=== PATIENT | male | born 1950 | race Caucasian/White ===

== ENCOUNTER 2018-03-28 07:38 | Observation (INO) | payer MEDICARE, BC ==
[2018-03-28] MEDS ORDERED: Aspirin 81 mg CHEW TAB* 81 MG TAB.CHEW PO ONE (07:55)
[2018-03-28] MEDS ORDERED: Nitroglycerin TAB 0.4 MG* 0.4 MG TAB ONE (07:56)
[2018-03-28] MEDS ORDERED: Aspirin 81 mg CHEW TAB* 81 MG TAB.CHEW ONE (07:57)
[2018-03-28] MEDS: Nitroglycerin TAB 0.4 MG* 0.4 MG TAB SL ONE ×2 (07:59→08:13)
--- NOTE | 2018-03-28 08:08 | ED ---
HPI Chest Pain - HPI Summary HPI Summary: This is cady Posey documenting for attending Sher James MD. This patient is a 68 year old M presenting to ED with a chief complaint of CP since 1300 yesterday and early this morning. He took asa 81mg early this morning after waking up and was able to doze back to sleep because of it. The CC is described as tightness. The patient rates the pain 7-8/10 in severity. Symptoms aggravated by deep breath. Symptoms alleviated by nothing. Patient reports neck pain (not unusual for last 1.5 years) and L shoulder pain. Patient denies leg pain/swelling. Patient denies recent travel. Called Dr. Weiner this morning who told him to be seen in the ED. No PMHx of heart attack or blood clot. - History of Current Complaint Chief Complaint: EDChestPainROMI Time Seen by Provider: 03/28/18 07:46 Hx Obtained From: Patient Onset/Duration: Started Hours Ago, Still Present Timing: Constant, Lasting Hours Initial Severity: Moderate Current Severity: Moderate Pain Intensity: 7 Pain Scale Used: 0-10 Numeric - 7-8/10 Character: Tightness Aggravating Factor(s): Deep Breaths Alleviating Factor(s): Nothing Associated Signs and Symptoms: Positive: Other: - Patient reports neck pain ( not unusual for last 1.5 years) and L shoulder pain. Patient denies leg pain/ swelling. - Allergy/Home Medications Allergies/Adverse Reactions: Allergies Allergy/AdvReac Type Severity Reaction Status Date / Time SEASONAL ALLERGIES Allergy Intermediate Sneezing Uncoded 03/28/18 07:45 Home Medications: Home Medications Lisinopril/HCTZ 20/25(NF) [Zestoretic 20/25(NF)] 0.5 tab PO DAILY 03/28/18 [ History Confirmed 03/28/18] PMH/Surg Hx/FS Hx/Imm Hx Endocrine/Hematology History: Denies: Hx Diabetes, Hx Systemic Lupus Erythematosus Cardiovascular History: Reports: Hx Hypertension - ON MEDICATION Denies: Hx Congestive Heart Failure, Hx Pacemaker/ICD History: Reports: Other Problems/Disorders - 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 TONSILECTOMY. WISDOM TEETH. Infectious Disease History: No Infectious Disease History: Denies: Traveled Outside the [place] in Last 30 Days - Family History Known Family History: Positive: Hypertension, Diabetes, Other Family History: bypass, CA, rheumatoid arthritis - Social History Alcohol Use: Weekly Alcohol Amount: 14 beers per week Substance Use Type: Reports: Marijuana, Prescribed Substance Use Comment - Amount & Last Used: Medical Marijuana Smoking Status (MU): Never Smoked Tobacco Have You Smoked in the Last Year: No Review of Systems Positive: Other - neck pain (not unusual for last 1.5 years) Positive: Chest Pain Positive: Other - L shoulder pain; denies leg pain/swelling All Other Systems Reviewed And Are Negative: Yes Physical Exam - Summary Physical Exam Summary: GENERAL: Patient is a well-developed and nourished MALE who is lying comfortable in the stretcher. Patient is not in any acute respiratory distress. HEAD AND FACE: Normocephalic EYES: PERRLA, EOMI x 2. EARS: Hearing grossly intact. MOUTH: Oropharynx within normal limits. NECK: Supple, trachea is midline, no adenopathy, no JVD, no carotid bruit. CHEST: Symmetric, no tenderness at palpation LUNGS: No wheezing. Crackles in R lung base. CVS: Regular rate and rhythm, S1 and S2 present, no murmurs or gallops appreciated. ABDOMEN: Soft, non-tender. Bowel sounds are normal. No abdominal abnormal pulsations. EXTREMITIES: Full ROM in all major joints, no edema, no cyanosis or clubbing. NEURO: Alert and oriented x 3. No acute neurological deficits. Speech is normal and follows commands. SKIN: Dry and warm Triage Information Reviewed: Yes Vital Signs On Initial Exam: Initial Vitals Temp Pulse Resp BP Pulse Ox 98.8 F 114 20 173/91 98 03/28/18 07:42 03/28/18 07:42 03/28/18 07:42 03/28/18 07:42 03/28/18 07:42 Vital Signs Reviewed: Yes Diagnostics - Vital Signs Vital Signs Temp Pulse Resp BP Pulse Ox 03/28/18 07:44 114 173/91 99 03/28/18 07:42 98.8 F 114 20 173/91 98 - Laboratory Result Diagrams: 03/28/18 08:04 03/28/18 08:04 Lab Statement: Any lab studies that have been ordered have been reviewed, and results considered in the medical decision making process. - Radiology CXR Radiology Interpretation Completed By: ED Physician - CXR has no acute findings. Pending official radiologist interpretation. See [facility]. - EKG 0751 Cardiac Rate: Tachycardia - 105 BPM EKG Rhythm: Sinus Tachycardia EKG Interpretation: L axis deviation Re-Evaluation - Re-Evaluation First Eval Re-Evaluation Time: 09:08 Change: Improved Comment: His CP went away with Nitro. Discussed plan for admission with the patient. The patient is agreeable with this plan. Chest Pain Course/Dx - Course Assessment/Plan: This patient is a 68 year old M presenting to ED with a chief complaint of CP since 1300 yesterday and early this morning. Workup is unremarkable including trop and D-dimer. The CP went away after given 2 nitro. Given high risk, the patient will be admitted for full ACS evaluation. Case discussed with hospitalist. I discussed results with patient. He agrees with this plan. - Chest Pain Differential Diagnosis/HQI/PQRI: Other: - chest pain - Diagnoses Provider Diagnoses: Chest pain - Provider Notifications Discussed Care Of Patient With: Anibal Naik Time Discussed With Above Provider: 09:06 Instructed by Provider To: Other - Consulted Dr. Naik at 0906 who accepts the patient for admission. Discharge - Sign-Out/Discharge Documenting (check all that apply): Patient Departure - Discharge Plan Condition: Stable Disposition: ADMITTED TO [facility] - Billing Disposition and Condition Condition: STABLE Disposition: Admitted to [facility]
[2018-03-28 08:11] LABS: ABS Basophils 0.1 10^3/ul (0-0.2); ABS Eosinophils 0.2 10^3/ul (0-0.6); ABS Lymphocytes 1.4 10^3/ul (1.0-4.8); ABS Monocytes 1.2 10^3/ul (0-0.8); ABS Nucleated RBC 0 10^3/ul; Eosinophil % 2.2 % (0-6); Hematocrit 45 % (42-52); Hemoglobin 15.5 g/dl (14.0-18.0); Lymphocyte % 15.7 % (25-47); Mean Corpuscular HGB Conc 34 g/dl (31-36); Mean Corpuscular Hemoglobin 31 pg (27-31); Mean Corpuscular Volume 90 fL (80-94); Nucleated Red Blood Cells % 0; Platelet Count 221 10^3/ul (150-450); Red Blood Count 5.02 10^6/ul (4.00-5.40); Red Cell Distribution Width 14 % (10.5-15); White Blood Count 8.8 10^3/ul (3.5-10.8)
[2018-03-28] MEDS ORDERED: Nitroglycerin TAB 0.4 MG* 0.4 MG TAB SL ONE (08:11)
[2018-03-28 08:20] LABS: INR 0.86 (0.77-1.02)
[2018-03-28 08:29] LABS: EGFR Non-African American 73.5 (>60)
[2018-03-28] MEDS ORDERED: Cyclobenzaprine TAB* 10 MG PO PRN (09:45)
[2018-03-28] MEDS ORDERED: Tapentadol(NF) 50 MG TAB PO PRN (09:45)
[2018-03-28] MEDS ORDERED: Metoprolol Tartrate TAB* 25 MG PO SCH (11:00)
[2018-03-28] MEDS ORDERED: Heparin VIAL(*) 5000 UNITS/ML VIAL (FIVE THOUSAND) SUBCUT SCH (14:00)
--- NOTE | 2018-03-28 14:21 | HP ---
HISTORY AND PHYSICAL: DATE OF ADMISSION: 03/28/18 ADMITTING PROVIDER: Anibal Naik MD PRIMARY CARE PHYSICIAN: Charla Alonzo M.D. CHIEF COMPLAINT: Chest tightness and left shoulder pain. HISTORY OF PRESENT ILLNESS: Nahun Crockett is a 68-year-old male with past medical history of hypertension, hyperlipidemia, microscopic polyangiitis, on rituximab q.6 months and tapering prednisone followed by Dr. Jaems and Dr. Manolo Weiner. He had a small pericardial effusion suspected in 2015. He was in his normal state of present health the day prior to admission, cleaning out his gutters. He developed 2/10 chest tightness on the late afternoon, did not think much of it. He awoke on the morning of admission 1 a.m. with 7/10 chest tightness, pain with deep inspiration, left shoulder pain, and point tenderness in the area of scapula. He took a Nucynta and was able to eventually fall asleep at 3 a.m., but the tightness remained in the morning upon waking. He presented to the [facility] emergency room for further evaluation. He was referred to hospitalist service for ACS rule out. His initial troponin was 0.00. His EKG demonstrates some Q-waves in 3 and AVF, which were not present in March 2016. Of note, he has been following with Dr. Manolo Weiner, including three weeks ago he had a TTE in February 2018, which showed minimal septal bounce and no current effusion with preserved ejection fraction. He had a stress test in April 2016, when he first developed some evidence of a small pericardial effusion on CT scan, was eventually diagnosed with microscopic polyangiitis, put on rituximab and prednisone (of note initially started on methotrexate for intial concern for rheumatoid arthritis). His last MPO was 1.9 in December 07, 2017, peak was 4.1 in May 2016, and he has had positive immunofluorescence p-ANCAs. He had some relief of his chest tightness with nitroglycerin, which he just received twice, he has gotten 324 mg of aspirin in the emergency room. He denies shortness of breath but states that he has does have some pleuritic pain. No nausea, vomiting. No fevers, chills. Hemodynamically stable, initially tachycardic to 114 and initial labs included a negative D-dimer less than 200. PAST MEDICAL HISTORY: Includes: 1. Microscopic polyangiitis. 2. Hypertension. 3. Hyperlipidemia. 4. Chronic neck pain for which he is on Nucynta and follows with the pain clinic. ALLERGIES: Seasonal allergies. No medication allergies. FAMILY HISTORY: Father of age 76 of coronary artery disease. He also had diabetes and CKD. His mother at age 66 of throat cancer. She was a smoker. SOCIAL HISTORY: He is never a smoker, but had secondhand smoke exposure as a child. Drinks about 12 beers per week. Medical surrogate is his , Lorna Crockett. He is a full code. PHYSICAL EXAMINATION GENERAL APPEARANCE: No acute distress. VITAL SIGNS: Blood pressure 141/76, satting 94% on room air, respiratory rate 19, heart rate 89, temperature 98.8. HEENT: Normocephalic, atraumatic. Pupils are equal, round, and reactive to light. Extraocular motions intact. No scleral icterus. Moist mucous membranes. NECK: No cervical lymphadenopathy. Neck is supple. LUNGS: Clear to auscultation bilaterally with no wheezing, rales, or rhonchi. CARDIOVASCULAR: Heart sounds are somewhat distant, but no murmurs appreciated. ABDOMEN: Soft, nontender, nondistended. No rebound or guarding. No Isaacs's sign. EXTREMITIES: Warm, well perfused. No peripheral edema. NEURO: Moving all extremities. Cranial nerves II through XII were intact. Sensation intact. DIAGNOSTIC STUDIES/LAB DATA: White count 8.8, hemoglobin 15.5, hematocrit 45, platelets 221. INR is 0.86, sodium 138, potassium 3.9, chloride 103, carbon dioxide 28, BUN 21, creatinine 1.01, glucose 103, lactic acid 1.1, calcium 9.2, total bili 0.7, AST 17, ALT 23, alk phos 91, troponin 0.00. BNP 36. D-dimer less than 200. Chest x-ray official read pending. No gross infiltrate. Sharp costophrenic borders. ASSESSMENT AND PLAN: Nahun Crockett is a 68-year-old male with history of microscopic polyangiitis treated q.6-month rituximab and tapering doses of prednisone, who presents with chest tightness, left shoulder and left scapular pain. He will be admitted for ACS rule out to observation status, trend troponins every three hours. I am adding on a CRP, ESR, and transthoracic echocardiogram and MPO antibodies given the similarities to his pericardial involvement of his vasculitis back in 2016. Dr. Weiner is in-house today and available for consult as necessary. He is actually the one who told the patient to present to the hospital. We will continue his aspirin 81 daily, his cardiac meds, I am going to start beta ayo as well, metoprolol tartrate 25 mg q.6 hours and continue nitroglycerin sublingual as needed. We will continue atorvastatin 60 mg daily, his prednisone 5 mg daily for his microscopic polyangiitis, his Nucynta 50 mg q.4 hours p.r.n. for his chronic neck pains, he has already taken one in the emergency room. Continue his amlodipine 5 mg daily , lisinopril/hydrochlorothiazide takes a half tablet 20/25 mg daily. He is a full code. Medical surrogate is his , Lorna Crockett. Start subq heparin prophylaxis. If chest pain returns, likely put him on heparin drip. He likely would be a candidate for a stress test tomorrow, but we will see what the transthoracic echocardiogram shows. He will be n.p.o. for now. [id number]/CPS #: [id number] MTDD
[2018-03-28 15:10] VITALS: BP 148/76
--- NOTE | 2018-03-28 16:46 | RAD ---
Indication: Sternal chest pain radiating to the LEFT shoulder. Shortness of breath. Comparison: June 02, 2016 CT. Technique: Upright AP 0845 hours Report: Clear lungs and pleural spaces. Negative for pneumothorax. The heart, pulmonary vasculature, and mediastinal contours are unremarkable. Unremarkable osseous structures and soft tissue contours. IMPRESSION: #. No evidence for acute intrathoracic disease.
[2018-03-28] MEDS ORDERED: Atorvastatin* 20 MG TAB PO SCH (17:00)
--- NOTE | 2018-03-29 01:07 | DS ---
CC: Dr. Manolo Weiner; Dr. Ivan James; Charla Alonzo MD * DISCHARGE SUMMARY: DATE OF ADMISSION: 03/28/18 DATE OF DISCHARGE: 03/28/18 ADMITTING PROVIDER: Anibal Naik MD PRIMARY CARE PROVIDER: Charla Alonzo MD OUTPATIENT WASTE WATER WORKER: Dr. Manolo Weiner. CHIEF COMPLAINT: Chest tightness, left shoulder pain. PRINCIPAL DIAGNOSIS: Acute coronary syndrome ruled out; suspicion for microscopic polyangiitis flare. HISTORY OF PRESENT ILLNESS AND HOSPITAL COURSE: Nahun Crockett is a 68-year- old male with past medical history of hypertension, hyperlipidemia, microscopic polyangiitis, on Rituximab q.6 months with tapering prednisone, followed by Dr. James and Dr. Manolo Weiner. He had a small pericardial effusion suspected in 2015. He was in normal state of health, cleaning out his gutters and developed 2/10 chest tightness late afternoon on the day prior to admission, which he did not think much of. He awoke on the day of admission at 1 a.m. with 7/10 chest tightness and pain with deep inspiration, left shoulder pain, and point of tenderness in the area of his left scapula and took a Nucynta and finally was able to go back to sleep, but the chest tightness remained upon waking. He presented to the emergency room, got 2 nitroglycerin and 4 baby aspirin with some improvement in the pain. He was referred to the hospitalist service for ACS rule out. His troponins were negative x3. His initial EKG showed some Q- waves in III and aVF and ST depressions in III. Transthoracic echocardiogram was ordered, but not available this Thursday. He had MPO that was drawn and pending and slightly elevated inflammatory markers with CRP of 14 and ESR of 10. He desired to follow up as an outpatient with both Dr. James and Dr. Weiner. There is could be some consideration depending on the results of the MPO that he may be having flare of his microscopic polyangiitis, which has impacted his pericardial and previous episodes and may need further rituximab or steroids. He is going to call Dr. Weiner's office to schedule an outpatient echocardiogram. His repeat EKG prior to discharge was unchanged and he had resolution of his chest tightness, although intermittently 1/10. He also had a negative D-dimer of less than 200. Chest x-ray showed no acute process. Of note , Dr. Weiner had been called by the patient prior to admission and this provider also discussed the case with Dr. Weiner and who has agreed with the plan of action. DISCHARGE MEDICATIONS: (No changes to prior meds). 1. Amlodipine 5 mg p.o. q.a.m. 2. Aspirin 81 mg q. p.m. 3. Atorvastatin 60 mg mg p.o. daily. 4. Cholecalciferol 1000 units p.o. daily. 5. Flexeril 5 mg p.o. t.i.d. 6. Lisinopril/hydrochlorothiazide half a tab 20/25 mg tablet. 7. Medical marijuana 0.3 mL daily. 8. Omeprazole 40 mg p.o. daily. 9. Prednisone 5 mg daily. 10. Sildenafil citrate 50 mg p.o. daily. 11. Tapentadol (Nucynta) 50 mg p.o. q.4 hours p.r.n. 12. Zinc 25 mg p.o. daily. DISCHARGE DIET: Heart healthy, unchanged. ACTIVITY LEVEL: No restrictions. FOLLOWUP: The patient is instructed to follow up with Dr. Manolo Weiner's office in the morning to schedule an outpatient echocardiogram. The patient also should call the office of Dr. Ivan James. The patient should follow up within 7 to 10 days, may be consideration to give MPA treatments such as steroids, the MPO should be followed up on along with the echocardiogram aforementioned. TIME SPENT ON DISCHARGE: 35 minutes. [id number]/CPS #: [id number] MTDDella
[2018-03-29] MEDS ORDERED: Hydrochlorothiazide TAB* 25 MG PO SCH (09:00)
[2018-03-29] MEDS ORDERED: predniSONE TAB* 5 MG PO SCH (09:00)
[2018-03-29] MEDS ORDERED: Cholecalciferol TAB* 1000 UNITS PO SCH (09:00)
[2018-03-29] MEDS ORDERED: amLODIPine TAB* 5 MG PO SCH (09:00)
[2018-03-29] MEDS ORDERED: Omeprazole CAP* 20 MG PO SCH (09:00)
[2018-03-29] MEDS ORDERED: Lisinopril TAB* 10 MG PO SCH (09:00)
[2018-03-29] MEDS ORDERED: Aspirin 81 mg CHEW TAB* 81 MG TAB.CHEW PO SCH (18:00)
== END 2018-03-28 16:28 | disposition home or self-care (01) ==
LOC: ED 07:38 → MEDTELE 09:11
PROVIDERS: ADMIT Internal Medicine; ATTEND Internal Medicine
DX: R07.89 Other chest pain (principal); I10 Essential (primary) hypertension; E78.5 Hyperlipidemia, unspecified; M31.7 Microscopic polyangiitis; Z79.82 Long term (current) use of aspirin; M25.512 Pain in left shoulder; Z82.49 Family history of ischemic heart disease and other diseases of the circulatory system; Z80.0 Family history of malignant neoplasm of digestive organs
CPT/HCPCS: 36415; 71045; 80053; 83516; 83605; 83880; 84484; 85025; 85379; 85610; 85652; 85730; 86140; 93005; 99283; A9270-GY; G0378